=== PATIENT | male | born 2000 | race Caucasian/White ===

== ENCOUNTER 2023-02-18 13:02 | Outpatient (CLI) | payer OTHER, SELFPAY ==
--- NOTE | 2023-02-18 13:16 | XRR_ITS ---
PROCEDURE INFORMATION: Exam: XR Left Ankle Exam date and time: 02/18/2023 1:27 PM Age: 22 years old Clinical indication: Injury or trauma; Other: Rolled ankle; Sprain or strain; Left; Injury date: 02/17/23; Additional info: Acute ankle injury TECHNIQUE: Imaging protocol: Radiologic exam of the left ankle. Views: 3 or more views. COMPARISON: No relevant prior studies available. FINDINGS: Bones/joints: No acute fracture or dislocation. Mineralization is normal. Joint spacing and alignment are anatomic. Soft tissues: Anterolateral lower leg and ankle soft tissue swelling. XR/XR ankle LT min 3V* [id number] IMPRESSION: Soft tissue swelling without acute fracture or dislocation.
--- NOTE | 2023-02-18 13:16 | XRR_ITS ---
PROCEDURE INFORMATION: Exam: XR Left Tibia and Fibula Exam date and time: 02/18/2023 1:27 PM Age: 22 years old Clinical indication: Injury or trauma; Other: Rolled ankle; Sprain or strain; Lower leg; Left; Injury date: 02/17/23; Additional info: L ankle injury, tender over fibula too TECHNIQUE: Imaging protocol: Radiologic exam of the left tibia and fibula. Views: 2 views. COMPARISON: No relevant prior studies available. FINDINGS: Bones/joints: No acute fracture or dislocation. Mineralization is normal. Joints are maintained. Soft tissues: Anterolateral lower leg and ankle soft tissue swelling. XR/XR tibia fibula LT 2V [id number] IMPRESSION: Lower leg and ankle soft tissue swelling without acute fracture or dislocation.
== END 2023-02-18 13:03 | disposition home or self-care (01) ==
PROVIDERS: PCP Family Medicine; Visit Provider Family Medicine
DX: S99.912A Unspecified injury of left ankle, initial encounter (principal); X50.1XXA Overexertion from prolonged static or awkward postures, initial encounter
CPT/HCPCS: 73590; 73610